=== PATIENT | female | born 1960 | race Caucasian/White ===

== ENCOUNTER 2018-10-25 22:22 | Observation (INO) | payer BC ==
[2018-10-25 22:29] VITALS: RESP 16
--- NOTE | 2018-10-25 22:34 | ED ---
Arrhythmia/Palpitations HPI - General Source: patient Mode of arrival: ambulatory Limitations: no limitations <Cortney Zamoranobravo De Souza - Last Filed: 10/26/18 00:22> <Jeremy Duran Alirio - Last Filed: 10/26/18 01:16> - General Chief Complaint: Arrhythmia/Palpitations Stated Complaint: high heart rate - History of Present Illness Initial Comments: 58-year-old female past medical history of hypothyroidism and hyperlipidemia presenting today for chief complaint of racing heart. Patient states that her heart has been racing, she describes as "beating out of my chest" for the past 2 months. Patient states she has seen her primary care provider Dr. Palmer for multiple visits regarding this complaint. Patient states she was started on metoprolol half tab, and now is on 2 full tabs once in the morning and once in the evening. Patient states that symptoms persist, she states they're not daily her constant, she notes there on and off. She denies any pattern. Patient states that since noon this afternoon she has had constant racing sensation and epigastric cramping. In addition patient noted, SOB for the past month. Patient denies a pattern with the shortness of breath, she states she does work out daily with her daughter about 5 times a week denies noting any dyspnea on exertion. Patient denies any recent travel, hemoptysis, calf pain, calf swelling, lower extremity edema, recent surgery or history of blood clots or DVT, exogenous oxygen use, patient denies smoking history. Patient denies previous ID or TIA. Patient denies any recent cough, fever, congestion. Patient denies any nausea or vomiting. Patient denies any recent tick bites or autoimmune disorders. Patient denies any recent changes in her Synthroid dosage. (Naomie Zamorano) - Related Data Home Medications Medication Instructions Recorded Confirmed Fluvastatin Sodium [Lescol] 80 mg PO HS 10/06/14 10/07/14 Levothyroxine Sodium [Synthroid] 50 mcg PO DAILY 10/06/14 10/07/14 Minocycline HCl [Minocin] 50 mg PO HS 10/06/14 10/07/14 Previous Rx's Medication Instructions Recorded HYDROcodone/APAP 7.5-325MG [[place] 1 - 2 each PO Q6HR PRN #60 tab 10/07/14 7.5-325] Allergies Allergy/AdvReac Type Severity Reaction Status Date / Time No Known Allergies Allergy Verified 10/25/18 22:29 Review of Systems ROS Other: All systems not noted in ROS Statement are negative. <Naomie Zamorano - Last Filed: 10/26/18 00:22> ROS Other: All systems not noted in ROS Statement are negative. <Jeremy Duran - Last Filed: 10/26/18 01:16> ROS Statement: Those systems with pertinent positive or pertinent negative responses have been documented in the HPI. Past Medical History Past Medical History: Thyroid Disorder History of Any Multi-Drug Resistant Organisms: None Reported Past Surgical History: Cholecystectomy, Hysterectomy, Orthopedic Surgery Additional Past Surgical History / Comment(s): RIGHT HAND,HEMORRHOIDECTOMY Past Anesthesia/Blood Transfusion Reactions: Motion Sickness, Postoperative Nausea & Vomiting (PONV) Past Psychological History: No Psychological Hx Reported Smoking Status: Never smoker Past Alcohol Use History: Occasional Past Drug Use History: None Reported <Naomie Zamorano - Last Filed: 10/26/18 00:22> General Exam Limitations: no limitations <Naomie Zamorano - Last Filed: 10/26/18 00:22> Course <Naomie Zamorano - Last Filed: 10/26/18 00:22> <Jeremy Duran - Last Filed: 10/26/18 01:16> Vital Signs 10/25/18 10/25/18 10/26/18 22:26 23:28 00:26 Temperature 98.1 F Pulse Rate 63 125 H 66 Respiratory 16 16 Rate Blood Pressure 157/91 O2 Sat by Pulse 99 Oximetry - Reevaluation(s) Reevaluation #1: HR increased to 125bpm this was caught on telemetry by Dr. Duran, he had patient do vasovagal manuever return her to normal rate. EKG revealed junctional rhythm. 10/26/18 00:15 (Naomie Zamorano) EKG Findings - EKG Comments: EKG Findings:: Ventricular rate 67 bpm, NM interval 176 ms, QRS duration 104 ms , QT/QTC 4:30/454 ms. This is sinus rhythm with premature supraventricular complexes with occasional premature ventricular complexes, there is left axis deviation noted, as well as incomplete right bundle branch block. Nonspecific T -wave abnormalities, no ST elevation or depression noted. EKG evaluated by myself and Dr. Duran <Naomie Zamorano - Last Filed: 10/26/18 00:22> - EKG Comments: EKG Findings:: Repeat EKG obtained at 2348: Etc. junctional rhythm, incomplete right bundle branch block, rate of 124, QRS duration 104, QTC 479, no atrial activity, no complex regular rhythm no ST segment elevation <Jeremy Duran - Last Filed: 10/26/18 01:16> Medical Decision Making - Lab Data Result diagrams: 10/25/18 22:50 10/25/18 22:50 <Naomie Zamorano - Last Filed: 10/26/18 00:22> - Lab Data Result diagrams: 10/25/18 22:50 10/25/18 22:50 <Jeremy Duran - Last Filed: 10/26/18 01:16> - Medical Decision Making 58-year-old female presenting with palpitations. Patient has had symptoms ongoing for the past several months and she is being followed by primary care physician and has an appointment with cardiology. Initial EKG in the emergency department while he symptomatic with sinus rhythm, patient does become symptomatic and EKG is repeated. She has accelerated junctional rhythm. She converts to sinus rhythm with vagal maneuvers. Concerning is that the patient has epigastric and anterior chest pain with tachycardia. This is concerning for demand ischemia and unstable angina. She will be admitted with IV heparin, aspirin, cardiology placed on consult. She will be kept on telemetry. ( Jeremy Duran) - Lab Data Lab Results 10/25/18 10/25/18 10/25/18 Range/Units 22:50 22:50 22:50 WBC 7.0 (3.8-10.6) k/uL RBC 4.59 (3.80-5.40) m/uL Hgb 13.4 (11.4-16.0) gm/dL Hct 41.4 (34.0-46.0) % MCV 90.1 (80.0-100.0) fL MCH 29.1 (25.0-35.0) pg MCHC 32.3 (31.0-37.0) g/dL RDW 13.3 (11.5-15.5) % Plt Count 208 (150-450) k/uL Neutrophils % 50 % Lymphocytes % 39 % Monocytes % 5 % Eosinophils % 3 % Basophils % 0 % Neutrophils # 3.5 (1.3-7.7) k/uL Lymphocytes # 2.7 (1.0-4.8) k/uL Monocytes # 0.4 (0-1.0) k/uL Eosinophils # 0.2 (0-0.7) k/uL Basophils # 0.0 (0-0.2) k/uL PT (9.0-12.0) sec INR (<1.2) APTT (22.0-30.0) sec D-Dimer (<0.60) mg/L FEU Sodium 143 (137-145) mmol/L Potassium 3.9 (3.5-5.1) mmol/L Chloride 108 H (98-107) mmol/L Carbon Dioxide 27 (22-30) mmol/L Anion Gap 8 mmol/L BUN 21 H (7-17) mg/dL Creatinine 0.75 (0.52-1.04) mg/dL Est GFR (CKD-EPI)AfAm >90 (>60 ml/min/1.73 sqM) Est GFR (CKD-EPI)NonAf 87 (>60 ml/min/1.73 sqM) Glucose 108 H (74-99) mg/dL Calcium 9.4 (8.4-10.2) mg/dL Magnesium 2.2 (1.6-2.3) mg/dL Total Bilirubin 0.3 (0.2-1.3) mg/dL AST 26 (14-36) U/L ALT 40 (9-52) U/L Alkaline Phosphatase 69 (38-126) U/L Total Creatine Kinase 123 (30-135) U/L CK-MB (CK-2) 1.1 (0.0-2.4) ng/mL CK-MB (CK-2) Rel Index 0.9 Troponin I <0.012 (0.000-0.034) ng/mL Total Protein 6.7 (6.3-8.2) g/dL Albumin 4.1 (3.5-5.0) g/dL Lipase 110 (23-300) U/L TSH 1.020 (0.465-4.680) mIU/L 12/08/18 12/08/18 Range/Units 22:50 22:50 WBC (3.8-10.6) k/uL RBC (3.80-5.40) m/uL Hgb (11.4-16.0) gm/dL Hct (34.0-46.0) % MCV (80.0-100.0) fL MCH (25.0-35.0) pg MCHC (31.0-37.0) g/dL RDW (11.5-15.5) % Plt Count (150-450) k/uL Neutrophils % % Lymphocytes % % Monocytes % % Eosinophils % % Basophils % % Neutrophils # (1.3-7.7) k/uL Lymphocytes # (1.0-4.8) k/uL Monocytes # (0-1.0) k/uL Eosinophils # (0-0.7) k/uL Basophils # (0-0.2) k/uL PT 9.6 (9.0-12.0) sec INR 0.9 (<1.2) APTT 22.1 (22.0-30.0) sec D-Dimer 0.43 (<0.60) mg/L FEU Sodium (137-145) mmol/L Potassium (3.5-5.1) mmol/L Chloride (98-107) mmol/L Carbon Dioxide (22-30) mmol/L Anion Gap mmol/L BUN (7-17) mg/dL Creatinine (0.52-1.04) mg/dL Est GFR (CKD-EPI)AfAm (>60 ml/min/1.73 sqM) Est GFR (CKD-EPI)NonAf (>60 ml/min/1.73 sqM) Glucose (74-99) mg/dL Calcium (8.4-10.2) mg/dL Magnesium (1.6-2.3) mg/dL Total Bilirubin (0.2-1.3) mg/dL AST (14-36) U/L ALT (9-52) U/L Alkaline Phosphatase (38-126) U/L Total Creatine Kinase (30-135) U/L CK-MB (CK-2) (0.0-2.4) ng/mL CK-MB (CK-2) Rel Index Troponin I (0.000-0.034) ng/mL Total Protein (6.3-8.2) g/dL Albumin (3.5-5.0) g/dL Lipase (23-300) U/L TSH (0.465-4.680) mIU/L Disposition Is patient prescribed a controlled substance at d/c from ED?: No Time of Disposition: 00:22 Decision to Admit Reason: Admit from EC Decision Date: 10/26/18 Decision Time: 00:22 <Naomie Zamorano - Last Filed: 10/26/18 00:22> <Jeremy Duran - Last Filed: 10/26/18 01:16> Clinical Impression: Junctional rhythm, Heart palpitations Disposition: ADMITTED IP TO THIS [facility] Condition: Stable
[2018-10-25 23:02] LABS: Basophils % (A) 0 %; Eosinophils # (A) 0.2 k/uL (0-0.7); Eosinophils % (A) 3 %; HCT 41.4 % (34.0-46.0); HGB 13.4 gm/dL (11.4-16.0); Lymphocytes # (A) 2.7 k/uL (1.0-4.8); Lymphocytes % (A) 39 %; MCH 29.1 pg (25.0-35.0); MCHC 32.3 g/dL (31.0-37.0); MCV 90.1 fL (80.0-100.0); Mean Platelet Volume 6.9; Monocytes # (A) 0.4 k/uL (0-1.0); Monocytes % (A) 5 %; Neutrophils # (A) 3.5 k/uL (1.3-7.7); Neutrophils % (A) 50 %; Platelet Count 208 k/uL (150-450); RBC 4.59 m/uL (3.80-5.40); RDW 13.3 % (11.5-15.5)
--- NOTE | 2018-10-25 23:05 | XR ---
EXAMINATION TYPE: XR chest 2V DATE OF EXAM: 10/25/2018 COMPARISON: NONE HISTORY: Dysrhythmia TECHNIQUE: Frontal and lateral views of the chest are obtained. FINDINGS: Heart and mediastinum are normal. Lungs are clear. Diaphragm is normal. Bony thorax is int act. There are chest leads. IMPRESSION: Normal chest.
[2018-10-25 23:11] LABS: INR 0.9 (<1.2); Partial Thromboplastin Time 22.1 sec (22.0-30.0); Prothrombin Time 9.6 sec (9.0-12.0)
[2018-10-25 23:15] LABS: ALT 40 U/L (9-52); AST 26 U/L (14-36); Albumin 4.1 g/dL (3.5-5.0); Alkaline Phosphatase 69 U/L (38-126); Anion Gap 8 mmol/L; Blood Urea Nitrogen 21 mg/dL (7-17); Calcium 9.4 mg/dL (8.4-10.2); Carbon Dioxide 27 mmol/L (22-30); Chloride 108 mmol/L (98-107); Glucose 108 mg/dL (74-99); Lipase 110 U/L (23-300); Magnesium 2.2 mg/dL (1.6-2.3); Potassium 3.9 mmol/L (3.5-5.1); Sodium 143 mmol/L (137-145); Total Bilirubin 0.3 mg/dL (0.2-1.3); Total Protein 6.7 g/dL (6.3-8.2)
[2018-10-25 23:23] LABS: Creatine Kinase 123 U/L (30-135)
[2018-10-25 23:36] LABS: Creatine Kinase MB 1.1 ng/mL (0.0-2.4); Troponin I <0.012 ng/mL (0.000-0.034)
[2018-10-25] MEDS ORDERED: SODIUM CHLORIDE 0.9% 500 ML 500 ML IV ONE (23:52)
[2018-10-26] MEDS ORDERED: ASPIRIN 325 MG TAB PO STA (00:03)
[2018-10-26] MEDS ORDERED: HEPARIN SODIUM,PORCINE 5,000 UNIT/ML 1 ML VIAL IV PRN (00:07)
[2018-10-26] MEDS ORDERED: HEPARIN SODIUM,PORCINE 5,000 UNIT/ML 1 ML VIAL IV ONE (00:07)
[2018-10-26] MEDS ORDERED: HEPARIN SOD,PORK IN 0.45% NACL 25,000 UNIT in 0.45% NACL 1 500ML.BAG IV SCH (00:15)
[2018-10-26] MEDS ORDERED: NITROGLYCERIN SL TABS 0.4 MG TAB SUBLINGUAL PRN (00:18)
[2018-10-26 02:09] VITALS: BMI 33.8
[2018-10-26 06:24] LABS: Troponin I <0.012 ng/mL (0.000-0.034)
[2018-10-26] MEDS ORDERED: HYDROcodone/APAP 7.5-325MG 1 EACH TAB PO PRN (08:21)
[2018-10-26] MEDS ORDERED: LEVOTHYROXINE 50 MCG TAB PO SCH (09:00)
[2018-10-26] MEDS ORDERED: VERAPAMIL 40 MG TAB PO SCH (09:00)
[2018-10-26] MEDS ORDERED: METOPROLOL SUCCINATE (ER) 25 MG TAB.ER.24H PO SCH (09:00)
[2018-10-26 09:05] LABS: Cholesterol 147 mg/dL (<200); HDL Cholesterol 52 mg/dL (40-60); LDL Cholesterol,Calculated 61 mg/dL (0-99); Triglycerides 168 mg/dL (<150)
--- NOTE | 2018-10-26 09:05 | CONS ---
CONSULTATION Olga Everett this is a 58-year-old lady with a history of hypothyroidism for which she takes 50 mcg of Synthroid, hyperlipidemia. She also takes a pain medication in the form of Ririe. The reason for her pain is unclear. She is not a smoker. Does not consume alcohol on a regular basis and has just an occasional herbal tea, but not a caffeine drinker. For the last 2 months, she has been experiencing palpitations which she describes as a sensation of fluttering feeling in the chest that comes on randomly and makes her feel lightheaded, but never had ivis syncope. She has been having these spells on and off. She was initiated on metoprolol succinate 25 mg, increased to 50, but the symptoms seem to persist and she is scheduled to see the denture contour wire specialist in the next couple of weeks. However, she came in because she felt that heart was racing, beating out of her chest and she felt very anxious and after arrival she was found to be in a sinus rhythm with isolated PACs and PVCs, but while she was in the emergency room, she had a another episode of palpitations and EKG revealed what seems to be an atrial tachycardia at a rate of nearly 130 beats per minute. This atrial tachycardia seems to be the culprit issue. She then went back to sinus rhythm after a carotid massage or another vagal maneuver. She is resting comfortably. Appears to be in sinus at this time. PAST MEDICAL HISTORY: Patient has hypothyroidism. Takes only a small dose of Synthroid 50 mcg. She has hyperlipidemia. She takes pain medications. Reason is unclear. PAST SURGICAL HISTORY: She is status post hysterectomy, cholecystectomy, and also had some hemorrhoidectomy. REVIEW OF SYSTEMS: Remarkable for palpitations, occasional dizziness, has some arthritic pains. No hematemesis, melena, genitourinary symptoms, fever with chills or cough with expectoration. PHYSICAL EXAMINATION: Blood pressure is 120/70, pulse rate is 70 per minute regular HEENT unremarkable. Fundus was not examined by me. Neck is supple. No JVD. I do not hear a carotid bruit. There is no thyromegaly. Heart exam reveals S1, S2 heard normally. No rub, murmur or gallop. Lungs are clear. Abdomen is soft, nontender. Lower extremities reveal normal pulses. No edema. Central nervous system is normal. EKG revealed initially sinus with isolated PACs. Next EKG revealed supraventricular tachycardia, probably paroxysmal atrial tachycardia. LABORATORY DATA: Revealed unremarkable troponins and electrolytes and magnesium are normal. TSH is 1.02. IMPRESSION: 1. Paroxysmal atrial tachycardia, symptomatic. 2. History of hypothyroidism. 3. History of hyperlipidemia. RECOMMENDATIONS: I am recommending that we will discontinue Synthroid and also metoprolol succinate, which does not help her much. I will try verapamil 40 mg t.i.d. We will discharge her home on verapamil only. I will see her in the office, perform an echocardiogram and consider an event monitor for surveillance. Advised the patient to refrain from caffeine and we will repeat thyroid function tests off Synthroid in 3 weeks or so. I discussed my thoughts in detail with the patient. Thank you very much for the consult. BIPIN / VANNA: [id number] /
[2018-10-26 09:58] LABS: Creatine Kinase 93 U/L (30-135)
[2018-10-26 10:08] LABS: Creatine Kinase MB 0.8 ng/mL (0.0-2.4)
[2018-10-26 12:13] VITALS: BP 99/70; PULSE 65; TEMP 97.9
--- NOTE | 2018-10-26 12:35 | P.HPIM ---
History of Present Illness H&P Date: 10/26/18 Chief Complaint: palpitation with paroxysmal PAT History and physical and discharge summary This is a 4-year-old female with Dr. Swan with a previous medical history significant for hyperlipidemia as well as hypothyroidism with prior history of carpal tunnel status post surgery, patient presented to the ER [facility] because of 2 month history of racing hearts on and off associated with increased shortness breath, without any episode of chest pain or syncope or any episodes of dizziness or lightheadedness, patient was seen in the ER she was found initially to be in PAT subsequently she was converted into sinus rhythm however because of her presentation she was admitted to the hospital for cardiology evaluation, patient also stated that she has been getting metoprolol primary care physician twice every day without any relief. She has not had any episode of CAD or WI in the past she has not had any history of stroke in the past she has not had any history of thromboembolic disease. Review of Systems Constitutional: Denies anorexia, Denies chronic headaches, Denies lethargy, Denies weakness Eyes: denies blurred vision, denies bulging eye, denies decreased vision Ears: deny: decreased hearing Ears, nose, mouth and throat: Denies dysphagia, Denies neck lump Cardiovascular: Reports dyspnea on exertion, Reports rapid heart beat, Reports shortness of breath, Denies chest pain, Denies decreased exercise tolerance, Denies syncope Respiratory: Denies congestion, Denies cough with sputum, Denies home oxygen, Denies sleep apnea, Denies snoring, Denies wheezing Gastrointestinal: Denies abdominal pain, Denies BRBPR, Denies heartburn, Denies melena, Denies nausea, Denies vomiting Genitourinary: Denies dysuria, Denies hematuria Musculoskeletal: Denies myalgias Musculoskeletal: absent: ankle pain, ankle stiffness, ankle swelling, elbow pain , elbow stiffness, elbow swelling, foot pain, foot stiffness, foot swelling, hand pain, hand stiffness, hand swelling, hip pain, hip stiffness, hip swelling , knee pain, knee stiffness, knee swelling, shoulder pain, shoulder stiffness, shoulder swelling, wrist pain, wrist stiffness, wrist swelling Integumentary: Denies pruritus, Denies rash Neurological: Denies numbness, Denies weakness Psychiatric: Denies anxiety, Denies depression Endocrine: Denies fatigue, Denies weight change Past Medical History Past Medical History: Hyperlipidemia, Osteoarthritis (OA), Thyroid Disorder Additional Past Medical History / Comment(s): pt states she had a holter monitor on previously. History of Any Multi-Drug Resistant Organisms: None Reported Past Surgical History: Cholecystectomy, Hysterectomy, Orthopedic Surgery Additional Past Surgical History / Comment(s): RIGHT HAND,HEMORRHOIDECTOMY Past Anesthesia/Blood Transfusion Reactions: Motion Sickness, Postoperative Nausea & Vomiting (PONV) Past Psychological History: No Psychological Hx Reported Smoking Status: Never smoker Past Alcohol Use History: Occasional Past Drug Use History: None Reported Medications and Allergies Home Medications Medication Instructions Recorded Confirmed Type Fluvastatin Sodium [Lescol] 80 mg PO HS 10/06/14 10/26/18 History Biotin 5 mg PO DAILY 10/26/18 10/26/18 History Calcium Carbonate [Calcium] 600 mg PO DAILY 10/26/18 10/26/18 History Cholecalciferol [Vitamin D3] 1,000 unit PO DAILY 10/26/18 10/26/18 History Levothyroxine Sodium [Synthroid] 50 mcg PO DAILY 10/26/18 10/26/18 History Metoprolol Succinate [Toprol XL] 25 mg PO DAILY 10/26/18 10/26/18 History [place]-3 Fatty Acids/Fish Oil [Fish 1 cap PO DAILY 10/26/18 10/26/18 History Oil 1,000 mg Softgel] Ubidecarenone [Co Q-10] 100 mg PO DAILY 10/26/18 10/26/18 History Allergies Allergy/AdvReac Type Severity Reaction Status Date / Time No Known Allergies Allergy Verified 10/26/18 09:49 Physical Exam Vitals: Vital Signs Temp Pulse Pulse Resp BP BP Pulse Ox 10/26/18 08:00 98.2 F 60 16 101/63 99 10/26/18 03:37 97.6 F 118 H 16 103/70 99 10/26/18 02:03 98.1 F 63 16 125/73 97 10/26/18 01:34 125 H 16 121/87 98 10/26/18 00:26 66 16 10/25/18 23:28 125 H 10/25/18 22:26 98.1 F 63 16 157/91 99 Intake and Output 10/25/18 10/26/18 10/26/18 22:59 06:59 14:59 Other: Voiding Method Toilet # Voids 2 Weight 83.915 kg 83.915 kg - Constitutional General appearance: average body habitus, no acute distress - EENT Eyes: anicteric sclerae, EOMI, no ptosis, no scleral icterus, normal appearance ENT: hearing grossly normal, NA/AT, normal oropharynx, no thrush Ears: bilateral: normal - Neck Neck: no lymphadenopathy, normal ROM, no rigidity, no stridor, no thyromegaly Carotids: bilateral: upstroke normal Thyroid: bilateral: normal size - Respiratory Respiratory: bilateral: diminished, negative: dullness, rales, rhonchi, wheezing , prolonged expiration - Cardiovascular Rhythm: regular Heart sounds: normal: S1, S2 Abnormal Heart Sounds: no S3 Gallop, no S4 Gallop - Gastrointestinal General gastrointestinal: normal bowel sounds, soft, no splenomegaly, no tenderness, no umbilical hernia, no ventral hernia - Integumentary Integumentary: normal, normal turgor - Neurologic Neurologic: CNII-XII intact - Musculoskeletal Musculoskeletal: strength equal bilaterally - Psychiatric Psychiatric: A&O x's 3, appropriate affect, intact judgment & insight Results CBC & Chem 7: 10/25/18 22:50 10/25/18 22:50 Labs: Abnormal Lab Results - Last 24 Hours (Table) 10/25/18 10/26/18 Range/Units 22:50 05:31 APTT 37.0 H (22.0-30.0) sec Chloride 108 H (98-107) mmol/L BUN 21 H (7-17) mg/dL Glucose 108 H (74-99) mg/dL Thrombosis Risk Factor Assmnt - DVT/VTE Prophylaxis DVT/VTE Prophylaxis: Pharmacologic Prophylaxis ordered, Mechanical Prophylaxis ordered - Choose All That Apply Any of the Below Risk Factors Present?: Yes Each Factor Represents 1 point: Age 41-60 years, Obesity (BMI >25) Thrombosis Risk Factor Assessment Total Risk Factor Score: 2 Thrombosis Risk Factor Assessment Level: Low Risk Assessment and Plan Assessment: Assessment and plan: 1. Recurrent episode of PAT currently in sinus rhythm. Patient was admitted to the hospital for evaluation by cardiology, will need echocardiogram, cardiac evaluation, cardiac enzymes are negative so far, was taken off Metoprolol and was started on Verapamil 40 mg orally tid. 2. Hypothyroidism. Hold off synthroid. 3. Hyperlipidemia. Continue Lescol 80 mg orally once every day. 4. History of trigger finger post surgery. 5. History of carpal tunnel was released on the left side. 6. DVT prophylaxis. Heparin 5000 units subcutaneously every 8 hours. 7. GI prophylaxis. Continue patient on PPI. 8. Observation. 9. March discharge home and followup with cardiology for 30 day event monitor. 10. Follow up with PCP and cardiology in 1 week.
[2018-10-26] MEDS ORDERED: ATORVASTATIN 10 MG TAB PO SCH (21:00)
[2018-10-26] MEDS ORDERED: MINOCYCLINE 50 MG CAP PO SCH (21:00)
== END 2018-10-26 13:33 | disposition home or self-care (01) ==
LOC: EC 22:22 → 1SOBS 10-26 00:22
PROVIDERS: ADMIT Internal Medicine Geriatric Medicine; ATTEND Internal Medicine Geriatric Medicine
DX: I47.1 Supraventricular tachycardia (principal); I49.3 Ventricular premature depolarization; E78.5 Hyperlipidemia, unspecified; E03.9 Hypothyroidism, unspecified; M19.90 Unspecified osteoarthritis, unspecified site; Z90.49 Acquired absence of other specified parts of digestive tract; Z79.890 Hormone replacement therapy; Z79.899 Other long term (current) drug therapy; E66.9 Obesity, unspecified; Z68.33 Body mass index [BMI] 33.0-33.9, adult
CPT/HCPCS: 96374; 99285; 36415; 93005; 85379; 80061; 80053; 82550 ×2; 82553 ×2; 83690; 83735; 84443; 84484 ×2; 85025; 85610; 85730 ×2; 71046; G0378; J1644 ×2

== ENCOUNTER → 2019-02-10 | Outpatient (CLI) | payer BC | LOC: LABWHC1 07:06 | PROVIDERS: ATTEND Internal Medicine Interventional Cardiology | DX: E78.5 Hyperlipidemia, unspecified (principal) | CPT/HCPCS: 36415; 80061; 84450; 84460 ==

== ENCOUNTER → 2019-06-19 | Outpatient (CLI) | payer BC ==
[2019-06-19 18:47] LABS: Chol/HDL Ratio 3.62; LDL Cholesterol,Calculated 158.8 mg/dL (0.0-131.0); VLDL Calculation 19.2 mg/dL (5.00-40.00)
== END | disposition home or self-care (01) ==
LOC: LABWHC1 08:14
PROVIDERS: ATTEND Internal Medicine Interventional Cardiology
DX: E78.2 Mixed hyperlipidemia (principal)
CPT/HCPCS: 36415; 80061; 82550; 84450; 84460

== ENCOUNTER → 2020-05-13 | Outpatient (CLI) | payer BC ==
[2020-05-13 15:24] LABS: Chol/HDL Ratio 2.32; LDL Cholesterol,Calculated 68.2 mg/dL (0.0-131.0); VLDL Calculation 10.8 mg/dL (5.00-40.00)
== END | disposition home or self-care (01) ==
LOC: LABWHC1 08:40
PROVIDERS: ATTEND Internal Medicine Interventional Cardiology
DX: E78.2 Mixed hyperlipidemia (principal)
CPT/HCPCS: 36415; 80061; 84450; 84460

== ENCOUNTER → 2020-09-16 | Outpatient (CLI) | payer BC ==
[2020-09-16 11:08] LABS: HCT 43.2 % (34.0-46.0); MCH 29.6 pg (25.0-35.0); MCHC 32.4 g/dL (31.0-37.0); MCV 91.3 fL (80.0-100.0); Platelet Count 198 k/uL (150-450); RBC 4.74 m/uL (3.80-5.40); RDW 12.8 % (11.5-15.5); WBC 5.8 k/uL (3.8-10.6)
[2020-09-16 15:20] LABS: African American GFR (CKD) 79.4 (60.0-200.0); Anion Gap 7.3 mmol/L (4.00-12.00); BUN/Creat Ratio 13.33 Ratio (12.00-20.00); Calcium 9.7 mg/dL (8.7-10.3); Carbon Dioxide 30.7 mmol/L (21.6-31.8); Non-African American GFR(CKD) 68.5 (60.0-200.0); Potassium 3.9 mmol/L (3.5-5.5)
[2020-09-16 15:28] LABS: T4, Free (Free Thyroxine) 1.1 ng/dL (0.80-1.80)
== END | disposition home or self-care (01) ==
LOC: LABWHC1 10:02
PROVIDERS: ATTEND Nurse Practitioner
DX: E03.9 Hypothyroidism, unspecified (principal); I47.1 Supraventricular tachycardia; E55.9 Vitamin D deficiency, unspecified
CPT/HCPCS: 36415; 80048; 82306; 83735; 84439; 84443; 85027